=== PATIENT | male | born 1985 | race African-American/Black ===

== ENCOUNTER 2020-11-30 21:13 | Emergency (ER) | payer OTHER ==
[~2020-11-30] VITALS: Ht 182.9 cm; Wt 84.4 kg
[~2020-11-30 21:13] MED LIST: FLEXERIL PO; IBUPROFEN 800800 M1 PO; PROMETHAZINE-D120 ML PO; VENTOLIN HFA INH8 GM IH
[2020-11-30] MEDS ORDERED: NOHOMEMEDICATIONS (21:20)
[2020-11-30] MEDS ORDERED: MOBIC7.5 MG PO (21:59)
[2020-11-30] MEDS ORDERED: VALIUM2 MG PO (21:59)
[2020-11-30 22:29] VITALS: BP 112/68
== END 2020-11-30 22:31 | disposition home or self-care (01) ==
LOC: ER 21:13
DX: S39.012A Strain of muscle, fascia and tendon of lower back, initial encounter (principal); X50.0XXA Overexertion from strenuous movement or load, initial encounter; Y93.89 Activity, other specified; Y92.89 Other specified places as the place of occurrence of the external cause; Y99.8 Other external cause status